=== PATIENT | female | born 1940 | race Caucasian/White ===

== ENCOUNTER → 2020-10-19 | Outpatient (REF) | payer MEDICARE, OTHER ==
[2020-10-19 18:11] LABS: APPEARANCE, URINE CLEAR (CLEAR); BACTERIA, URINE AUTO NEGATIVE (NEGATIVE); BILIRUBIN, URINE AUTO NEGATIVE (NEGATIVE); BLOOD, URINE BLOOD NEGATIVE (NEGATIVE); COLOR, URINE YELLOW (YELLOW); GLUCOSE, URINE (UA) AUTO NEGATIVE (NEGATIVE); KETONE, URINE AUTO NEGATIVE (NEGATIVE); LEUKOCYTE ESTERASE, URINE AUTO NEGATIVE (NEGATIVE); NITRITE, URINE AUTO NEGATIVE (NEGATIVE); PROTEIN, URINE AUTO NEGATIVE (NEGATIVE); RBC, URINE AUTO 1 /HPF (0-3); SQUAMOUS EPITHELIAL CELL UR AU 0 /HPF (0-6); UROBILINOGEN, URINE AUTO 0.2 mg/dL (0.0-2.0); WBC, URINE AUTO 2 /HPF (0-3)
== END ==
LOC: M SMT 17:08
PROVIDERS: ATTEND Urology
DX: R31.29 Other microscopic hematuria (principal)
CPT/HCPCS: 81001; 87086; G0463

== ENCOUNTER → 2020-10-26 | Outpatient (CLI) | payer MEDICARE, OTHER ==
[~2020-10-26] MED LIST: ISOVUE-370 76% 100ML VIAL ONE
--- NOTE | 2020-10-26 16:40 | REP ---
INDICATION: MICROSCOPIC HEMATURIA. COMPARISON: None. TECHNIQUE: CT abdomen and pelvis performed without IV contrast. CT abdomen pelvis performed with IV contrast as well, following intravenous administration of 75 cc of Isovue 370. Sagittal, coronal and 3D MIP reconstruction images are performed and without 4 noncontrast, enhanced and delayed images with standard and MIP reformats.. FINDINGS: Lung bases: Show some dependent atelectasis and basilar fibrosis without definite effusion or infiltrate. There is a hiatal hernia evident. Calcifications of the lower thoracic aorta present without aneurysm. Liver: There is no hepatomegaly, hepatic mass, intrahepatic biliary dilatation or ascites Gallbladder: No calcified stone or mass. Spleen: Not enlarged without focal lesion. Adrenals: Without acute finding. Abdominal aorta: Diffuse heavy atherosclerotic calcifications without aneurysm. Calcified branches off the abdominal aorta and iliac vessels noted. Pancreas: Normal. Kidneys: No stones on the pre contrast images. There is no solid mass, hydronephrosis, hydroureter or ureteral stone on either side. Contrast and delayed images confirm no mass. I see no evidence of a cyst. An extrarenal pelvis is seen on the delayed images without filling defect. CT urogram reconstructions demonstrate collecting systems without abnormal dilatation of the calices or renal pelvis proximal course of the ureters seen and grossly unremarkable. The bilateral ureters are seen segmentally to the bladder. The left ureter is not seen in the last several cm in the pelvis on the delayed images but does extend to distal left pelvis on the earlier enhanced phase reconstruction. No filling defects. Small and large bowel: There is extensive distal left colonic and sigmoid diverticulosis without diverticulitis. Remainder of the colon unremarkable. The appendix is seen and unremarkable. Small bowel loops without dilatation, wall thickening, air-fluid levels or sign of obstruction. Free fluid: None. Adenopathy: There is no periaortic, mesenteric or other retroperitoneal lymphadenopathy. Appendix: Not inflamed. Osseous structures: Spondylosis of lumbar lower thoracic spine age-appropriate. There is levoconvex curve centered at L1-2 without acute compression deformity or destructive lesion. Facet arthropathy is noted the lumbar spine without spondylolysis or spondylolisthesis. Lower ribs intact. 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 The pelvis and hips show minor degenerative change without destructive lesion or fracture. Pelvis: Uterus tilted towards the right with prominent fibroid or enlarged right adnexa and some calcifications. No pelvic free fluid. Bladder partially filled. There is no wall thickening, distal ureteral or bladder stone nor distal hydroureter noted. No pelvic ascites. No ventral or inguinal hernia. IMPRESSION: No CT evidence of renal, ureteral or bladder stone. There is no mass, cyst, hydronephrosis, mass in the collecting system or hydroureter. No significant or acute finding in the urinary tract. Uterus tilted towards the right with exophytic fibroid or adnexal mass. Some calcifications seen within it. No pelvic free fluid. Extensive diverticulosis distal left colon and sigmoid without diverticulitis, colitis, definite stricture or mass. Extensive atherosclerotic calcification aorta and branches. No aneurysm. <Electronically signed by Lasha Kowalski > 10/26/20 [id number]
== END ==
LOC: M PLAIMG 13:54
PROVIDERS: ATTEND Urology
DX: R31.29 Other microscopic hematuria (principal); J98.11 Atelectasis; J84.10 Pulmonary fibrosis, unspecified; I70.0 Atherosclerosis of aorta; M47.816 Spondylosis without myelopathy or radiculopathy, lumbar region; M47.814 Spondylosis without myelopathy or radiculopathy, thoracic region; K57.30 Diverticulosis of large intestine without perforation or abscess without bleeding
CPT/HCPCS: 74178; Q9967

== ENCOUNTER → 2020-11-24 | Outpatient (REF) | payer MEDICARE, OTHER | LOC: M SMT 12:51 | PROVIDERS: ATTEND Urology | DX: R31.29 Other microscopic hematuria (principal) ==

== ENCOUNTER → 2021-06-17 | Outpatient (REF) | payer MEDICARE, OTHER ==
[2021-06-17 18:10] LABS: APPEARANCE, URINE HAZY (CLEAR); BACTERIA, URINE AUTO NEGATIVE (NEGATIVE); BILIRUBIN, URINE AUTO NEGATIVE (NEGATIVE); BLOOD, URINE BLOOD NEGATIVE (NEGATIVE); COLOR, URINE YELLOW (YELLOW); GLUCOSE, URINE (UA) AUTO NEGATIVE (NEGATIVE); KETONE, URINE AUTO NEGATIVE (NEGATIVE); LEUKOCYTE ESTERASE, URINE AUTO NEGATIVE (NEGATIVE); MUCUS, URINE SMALL (NEGATIVE); NITRITE, URINE AUTO NEGATIVE (NEGATIVE); PROTEIN, URINE AUTO NEGATIVE (NEGATIVE); RBC, URINE AUTO 2 /HPF (0-3); SPECIFIC GRAVITY URINE AUTO 1.014 (1.002-1.035); SQUAMOUS EPITHELIAL CELL UR AU 0 /HPF (0-6); UROBILINOGEN, URINE AUTO 0.2 mg/dL (0.0-2.0); WBC, URINE AUTO 13 /HPF (0-3)
== END ==
LOC: M SMT 16:40
PROVIDERS: ATTEND Urology
DX: R31.29 Other microscopic hematuria (principal)

== ENCOUNTER 2022-07-21 08:09 | Day surgery (SDC) | payer MEDICARE, OTHER ==
[~2022-07-21] VITALS: Ht 149.9 cm; Wt 50.8 kg
[~2022-07-21 08:09] MED LIST changes: +AMLO1TAB24 PO; +BAYE325T12 PO; +BUSP10TA; +CALC-362 PO; +CVS1CAP56; +HYDR10TAB; -ISOVUE-370 76% 100ML VIAL ONE; +KETO2SHA8 TOP; +KP F1200 PO; +LORA-674; +METO1TAB33; +NS 1,000 ML IV ONE; +OMEP-356; +TELM1TAB37; +VITA100T91 PO; +VITMTA PO
[2022-07-21] MEDS ORDERED: propofoL 200 MG/20 ML VIAL As Ordered ONE (09:32)
[2022-07-21] MEDS ORDERED: LIDOCAINE 2% 100MG/5ML SDV (FOR ANES.) As Ordered ONE (09:32)
[2022-07-21 10:29] VITALS: BP 149/70
== END 2022-07-21 10:30 | disposition home or self-care (01) ==
LOC: M OPP 08:09
PROVIDERS: ATTEND Surgery
DX: K57.30 Diverticulosis of large intestine without perforation or abscess without bleeding (principal); R19.4 Change in bowel habit; K44.9 Diaphragmatic hernia without obstruction or gangrene; R13.10 Dysphagia, unspecified; I10 Essential (primary) hypertension; Z87.891 Personal history of nicotine dependence; Z79.02 Long term (current) use of antithrombotics/antiplatelets; Z79.82 Long term (current) use of aspirin; Z79.891 Long term (current) use of opiate analgesic; Z79.899 Other long term (current) drug therapy

== ENCOUNTER → 2022-09-20 | Outpatient (CLI) | payer MEDICARE, OTHER ==
[~2022-09-20] MED LIST changes: +E-Z-GAS II EFFERVESCENT PACKET (SODIUM BICARB./CITRIC ACID/SIMETHICONE) As Ordered ONE; +E-Z-HD 98% w/w 340GM SUSP BTL As Ordered ONE; +E-Z-PAQUE 96% w/w SUSP 176GM BTL As Ordered ONE; -NS 1,000 ML IV ONE
== END ==
LOC: M RAD 08:59
PROVIDERS: ATTEND Physician Assistant
DX: R13.10 Dysphagia, unspecified (principal); K44.9 Diaphragmatic hernia without obstruction or gangrene; K21.9 Gastro-esophageal reflux disease without esophagitis

== ENCOUNTER → 2024-02-02 | Outpatient (REF) | payer MEDICARE, OTHER ==
[~2024-02-02] MED LIST changes: -E-Z-GAS II EFFERVESCENT PACKET (SODIUM BICARB./CITRIC ACID/SIMETHICONE) As Ordered ONE; -E-Z-HD 98% w/w 340GM SUSP BTL As Ordered ONE; -E-Z-PAQUE 96% w/w SUSP 176GM BTL As Ordered ONE; +HYDR-161; -HYDR10TAB; +LORA-1041; -LORA-674
== END ==
LOC: M SFHCDERM 17:42
PROVIDERS: ATTEND Physician Assistant
DX: L82.0 Inflamed seborrheic keratosis (principal)